=== PATIENT | male | born 1970 | race Caucasian/White ===

== ENCOUNTER 2024-04-20 09:13 | Outpatient (CLI) | payer OTHER | END 2024-04-20 09:14 | disposition home or self-care (01) | LOC: CSHSLEEP 09:13 | PROVIDERS: ATTEND Family Medicine | DX: G47.33 Obstructive sleep apnea (adult) (pediatric) (principal); R53.83 Other fatigue; R06.83 Snoring; G47.61 Periodic limb movement disorder | CPT/HCPCS: 95810 ==